=== PATIENT | female | born 1970 | race Caucasian/White ===

== ENCOUNTER 2016-11-13 14:51 | Inpatient (IN) | payer OTHER ==
[~2016-11-13] VITALS: Ht 170.2 cm; Wt 68.1 kg
[~2016-11-13 14:51] MED LIST: ALPRAZOLAM0.5 MG PO; AMOXICILLIN875 MG PO; AVELOX400 MG PO; BUPROPION HCL100 MG PO; CARAFATE100 MG/ML PO; CLEOCIN300 MG PO; Colace PO; DELTASONE20 M1 PO; DILAUDID2 MG PO; EXTRA STRENGTH500 M1 PO; FLORASTOR250 MG PO; FUROSEMIDE40 MG PO; GABAPENTIN400 MG PO; GILENYA PO; GILENYA0.5 MG PO; HABITROL,NICODE21 MG TD; HYDROCHLOROTH12.5 M3 PO; Habitrol,Nicoderm CQ TD; IMITREX100 MG PO; KEFLEX500 MG PO; MAXALT10 MG PO; MODAFINIL200 MG; MODAFINIL200 MG PO; NEURONTIN100 MG PO; NEURONTIN400 MG PO; NICOTINE PATCH1 EAC1 TD; NICOTINE PATCH1 EAC2 TD; OXYBUTYNIN CHLO10 MG PO; OXYCODONE HCL30 MG PO; OxyCODONE PO; PANTOPRAZOLE SO40 MG PO; PAXIL10 MG PO; PERCOCET 10/1 TABLET PO; PERCOCET 5/31 TABLET PO; PREDNISONE10 MG PO; PREDNISONE50 MG PO; PROTONIX40 MG PO; PROVIGIL200 MG PO; REBIF44 MCG/0.5 IM; Roxicet,Percocet 5/3 PO; SOLU-MEDRO1000 MG/1 IV; SUMATRIPTAN SU100 MG PO; TYSABRI300 MG/15 IV; VICODIN,LORT1 TABLET PO; VITAMIN D2000 UNI1 PO; XANAX0.5 MG PO; ZOFRAN4 MG PO; ZOLPIDEM TARTRAT5 MG PO; ZYVOX600 MG PO; [UNRECOGNIZED DRUG - OTHER] PO; [UNRECOGNIZED DRUG - OTHER] PO
[2016-11-13 17:20] LABS: MCH 24.5 PG (29.0-34.0); MCHC 31.8 G/DL (30.0-36.0); MCV 77.1 FL (83-99); MEAN PLAT.VOLUME 9.8 uM^3 (9.5-12.4); PLATELET COUNT 248 K/uL (156-360); RBC DIS.WIDTH-SD 56.2 % (39-53); RED BLOOD COUNT 4.41 M/uL (3.80-5.20); WHITE BLOOD COUNT 6.8 K/uL (4.1-10.2)
[2016-11-13 17:30] LABS: CHLORIDE 109 mEq/L (99-109); POTASSIUM 4.4 mEq/L (3.7-5.4); SODIUM 141 mEq/L (136-147)
[2016-11-13 17:33] LABS: GLUCOSE 98 mg/dL (70-99)
[2016-11-13 17:34] LABS: ANION GAP 6 MEQ/L (2-14)
[2016-11-13 17:35] LABS: TOTAL BILIRUBIN 0.2 mg/dL (0.0-1.0)
[2016-11-13 17:36] LABS: ALKALINE PHOSPHATASE 167 IU/L (3-129); GFR ESTIMATE (CALCULATED) > 59 mL/min/
[2016-11-13 17:37] LABS: UREA NITROGEN (BUN) 5 mg/dL (9-23)
[2016-11-14] VITALS (7 sets, daily range): BP systolic 96–115; BP diastolic 54–67
[2016-11-14 07:22] LABS: HEMATOCRIT 33.5 % (36.0-46.0); MCH 24.7 PG (29.0-34.0); MCHC 31.9 G/DL (30.0-36.0); MCV 77.4 FL (83-99); MEAN PLAT.VOLUME 9.8 uM^3 (9.5-12.4); PLATELET COUNT 211 K/uL (156-360); RBC DIS.WIDTH-CV 20.2 % (11.8-14.6); RBC DIS.WIDTH-SD 57.1 % (39-53); RED BLOOD COUNT 4.33 M/uL (3.80-5.20)
[2016-11-14 07:23] LABS: WHITE BLOOD COUNT 3.8 K/uL (4.1-10.2)
[2016-11-14 07:39] LABS: ALKALINE PHOSPHATASE 167 IU/L (3-129); ANION GAP 8 MEQ/L (2-14); CHLORIDE 106 MEQ/L (99-109); GFR ESTIMATE (CALCULATED) > 59 mL/min/; GLUCOSE 202 mg/dL (70-99); POTASSIUM 3.8 MEQ/L (3.7-5.4); SAMPLE HEMOLYSIS CHECK 0; SAMPLE ICTERIC CHECK 0; SAMPLE LIPEMIA CHECK 0; SODIUM 137 MEQ/L (136-147); TOTAL BILIRUBIN 0.3 MG/DL (0.0-1.0); UREA NITROGEN (BUN) 5 mg/dL (9-23)
[2016-11-15 04:15] VITALS: BP 99/60
[2016-11-15 07:37] VITALS: BP 99/55
[2016-11-15 12:33] VITALS: BP 114/54
[2016-11-15 15:46] VITALS: BP 117/69
[2016-11-15 20:18] VITALS: BP 117/74
[2016-11-16 00:10] VITALS: BP 107/55
[2016-11-16 04:17] VITALS: BP 110/62
[2016-11-16 07:48] VITALS: BP 103/58
[2016-11-16 11:48] VITALS: BP 98/56
[2016-11-16 15:44] VITALS: BP 115/70
== END 2016-11-16 17:05 | disposition home or self-care (01) | DRG 60 ==
LOC: RME 14:51 → EME 14:51 → EDOF 11-14 00:24 → 5WEST 11-14 01:18
PROVIDERS: Internal Medicine; Nurse Practitioner Family
DX: G35 Multiple sclerosis (principal); F32.9 Major depressive disorder, single episode, unspecified; G89.29 Other chronic pain; I89.0 Lymphedema, not elsewhere classified; K21.9 Gastro-esophageal reflux disease without esophagitis; Z87.11 Personal history of peptic ulcer disease; Z98.84 Bariatric surgery status; F17.210 Nicotine dependence, cigarettes, uncomplicated; M79.89 Other specified soft tissue disorders; M06.9 Rheumatoid arthritis, unspecified; G43.909 Migraine, unspecified, not intractable, without status migrainosus; R63.4 Abnormal weight loss; Z68.23 Body mass index [BMI] 23.0-23.9, adult
CPT/HCPCS: 70450; 74177; 80053; 85027; 99281; 99285; J1170; J1644; J2270; J2405; J2765; J2930; J7030

== ENCOUNTER 2016-12-01 18:37 | Emergency (ER) | payer OTHER ==
[~2016-12-01] VITALS: Ht 170.2 cm; Wt 71.4 kg
[2016-12-01 19:13] LABS: EOSINOPHIL (%) 5.9 % (0-5); EOSINOPHIL COUNT 0.5 K/uL (0-0.3); HEMATOCRIT 32.9 % (36.0-46.0); IMMATURE GRANULOCYTE (%) 0.7 % (0.0-0.7); IMMATURE GRANULOCYTE COUNT 0.6 K/uL; LYMPHOCYTE COUNT 3.5 K/uL (1.0-2.8); MCH 25.7 PG (29.0-34.0); MCHC 32.8 G/DL (30.0-36.0); MCV 78.1 FL (83-99); MONOCYTE (%) 8.4 % (3-12); MONOCYTE COUNT 0.7 K/uL (0-0.8); NEUTROPHIL (%) 43.4 % (45-76); NEUTROPHIL COUNT 3.7 K/uL (1.8-6.4); RBC DIS.WIDTH-CV 20.8 % (11.8-14.6); RED BLOOD COUNT 4.21 M/uL (3.80-5.20)
[2016-12-01 19:18] LABS: CHLORIDE 102 mEq/L (99-109); POTASSIUM 3.8 mEq/L (3.7-5.4); SODIUM 133 mEq/L (136-147)
[2016-12-01 19:19] LABS: GLUCOSE 95 mg/dL (70-99)
[2016-12-01 19:21] LABS: ANION GAP 8 MEQ/L (2-14)
[2016-12-01 19:23] LABS: GFR ESTIMATE (CALCULATED) > 59 mL/min/
[2016-12-01 19:24] LABS: UREA NITROGEN (BUN) 5 mg/dL (9-23)
[2016-12-01 19:41] LABS: WHITE BLOOD COUNT 8.5 K/uL (4.1-10.2)
[2016-12-01 20:04] LABS: ADD MIUA? NO; BILIRUBIN NEGATIVE; BLOOD NEGATIVE; COLOR YELLOW ((YELLOW)); GLUCOSE (STRIP) NEGATIVE; KETONES NEGATIVE; LEUKOCYTES NEGATIVE; NITRITE NEGATIVE; PROTEIN (STRIP) NEGATIVE; SPECIFIC GRAVITY 1.011 (1.000-1.030); UCUL ADDED? NO; UROBILINOGEN 0.2 MG/DL (0.2-1.0)
[2016-12-01 20:04] LABS: MEAN PLAT.VOLUME 9.5 uM^3 (9.5-12.4); PLAT.SUFFICIENCY DECREASED
[2016-12-01 20:15] LABS: PLATELET COUNT 144 K/uL (156-360)
[2016-12-01] MEDS ORDERED: CLEOCIN300 MG PO (21:18)
[2016-12-01 21:47] VITALS: BP 125/79
== END 2016-12-01 21:59 | disposition home or self-care (01) ==
LOC: RME 18:37 → EME 18:37 → RME 21:59
DX: L03.115 Cellulitis of right lower limb (principal); G89.29 Other chronic pain; Z79.891 Long term (current) use of opiate analgesic; F17.200 Nicotine dependence, unspecified, uncomplicated
CPT/HCPCS: 80048; 81003; 83605; 85025; 87040; 99281; 99285; J1170; J2270; J7030

== ENCOUNTER 2017-01-28 16:42 | Emergency (ER) | payer OTHER ==
[~2017-01-28] VITALS: Ht 170.2 cm; Wt 76.1 kg
[~2017-01-28 16:42] MED LIST changes: +BACLOFEN10 MG PO
[2017-01-28] MEDS ORDERED: BUTALB-APAP-CA1 EACH PO (18:31)
[2017-01-28] MEDS ORDERED: FUROSEMIDE40 MG PO (18:31)
[2017-01-28 19:27] LABS: ADD MIUA? NO; BILIRUBIN NEGATIVE; BLOOD NEGATIVE; COLOR YELLOW ((YELLOW)); GLUCOSE (STRIP) NEGATIVE; KETONES NEGATIVE; LEUKOCYTES NEGATIVE; NITRITE NEGATIVE; PROTEIN (STRIP) NEGATIVE; SPECIFIC GRAVITY 1.006 (1.000-1.030); UCUL ADDED? NO; UROBILINOGEN 0.2 MG/DL (0.2-1.0)
[2017-01-28 19:34] LABS: HEMATOCRIT 34.7 % (36.0-46.0); MCH 27.3 PG (29.0-34.0); MCHC 31.4 G/DL (30.0-36.0); MCV 86.8 FL (83-99); MEAN PLAT.VOLUME 9.4 uM^3 (9.5-12.4); NRBC (%) 1.2 /100 WBC (0-0); PLATELET COUNT 204 K/uL (156-360); RBC DIS.WIDTH-CV 20.4 % (11.8-14.6); RBC DIS.WIDTH-SD 64.4 % (39-53); WHITE BLOOD COUNT 8.1 K/uL (4.1-10.2)
[2017-01-28 19:42] LABS: CHLORIDE 108 mEq/L (99-109); POTASSIUM 4.1 mEq/L (3.7-5.4); SODIUM 140 mEq/L (136-147)
[2017-01-28 19:44] LABS: GLUCOSE 93 mg/dL (70-99)
[2017-01-28 19:45] LABS: ANION GAP 7 MEQ/L (2-14)
[2017-01-28 19:48] LABS: GFR ESTIMATE (CALCULATED) > 59 mL/min/
[2017-01-28 19:49] LABS: UREA NITROGEN (BUN) 12 mg/dL (9-23)
[2017-01-28] MEDS ORDERED: KEFLEX500 MG PO (20:27)
[2017-01-28 20:48] VITALS: BP 115/75
== END 2017-01-28 20:50 | disposition home or self-care (01) ==
LOC: EME 16:42 → EXP 16:42
PROVIDERS: Physician Assistant
DX: M79.604 Pain in right leg (principal); M79.605 Pain in left leg; G89.29 Other chronic pain; M79.89 Other specified soft tissue disorders; M79.7 Fibromyalgia; G35 Multiple sclerosis; K21.9 Gastro-esophageal reflux disease without esophagitis; Z98.84 Bariatric surgery status; F17.200 Nicotine dependence, unspecified, uncomplicated
CPT/HCPCS: 80048; 81003; 85027; 85379; 99281; 99284; J1940; J2270

== ENCOUNTER 2017-03-30 14:06 | Inpatient (IN) | payer OTHER ==
[~2017-03-30] VITALS: Ht 170.2 cm; Wt 68.4 kg
[~2017-03-30 14:06] MED LIST changes: +BUTALB-APAP-CA1 EACH PO
[2017-03-30 14:49] LABS: HEMATOCRIT 32.9 % (36.0-46.0); MCH 29.9 PG (29.0-34.0); MCHC 32.8 G/DL (30.0-36.0); MCV 91.1 FL (83-99); MEAN PLAT.VOLUME 9.9 uM^3 (9.5-12.4); NRBC (%) 0.5 /100 WBC (0-0); PLATELET COUNT 213 K/uL (156-360); RBC DIS.WIDTH-CV 14.4 % (11.8-14.6); RBC DIS.WIDTH-SD 48.3 % (39-53); RED BLOOD COUNT 3.61 M/uL (3.80-5.20); WHITE BLOOD COUNT 9.5 K/uL (4.1-10.2)
[2017-03-30 14:57] LABS: CHLORIDE 92 mEq/L (99-109); POTASSIUM 2.6 mEq/L (3.7-5.4); SODIUM 132 mEq/L (136-147)
[2017-03-30 14:59] LABS: GLUCOSE 112 mg/dL (70-99)
[2017-03-30 15:00] LABS: ANION GAP 10 MEQ/L (2-14)
[2017-03-30 15:01] LABS: TOTAL BILIRUBIN 0.5 mg/dL (0.0-1.0)
[2017-03-30 15:02] LABS: ALKALINE PHOSPHATASE 190 IU/L (3-129)
[2017-03-30 15:03] LABS: GFR ESTIMATE (CALCULATED) > 59 mL/min/
[2017-03-30 15:04] LABS: UREA NITROGEN (BUN) 6 mg/dL (9-23)
[2017-03-30 18:32] LABS: ADD MIUA? NO; BILIRUBIN NEGATIVE; BLOOD NEGATIVE; COLOR STRAW ((YELLOW)); GLUCOSE (STRIP) NEGATIVE; KETONES NEGATIVE; LEUKOCYTES NEGATIVE; NITRITE NEGATIVE; PROTEIN (STRIP) NEGATIVE; SPECIFIC GRAVITY 1.005 (1.000-1.030); UROBILINOGEN 0.2 MG/DL (0.2-1.0)
[2017-03-30 18:42] LABS: ADD MEDTOX COMMENT Y; AMPHETAMINE NEGATIVE (500 ng/mL); BARBITURATES NEGATIVE (200 ng/mL); BENZODIAZEPINES PRESUMPTIVE POSITIVE (150 ng/mL); COCAINE NEGATIVE (150 ng/mL); INTERNAL CONTROLS VALID? YES; METHADONE PRESUMPTIVE POSITIVE (200 ng/mL); METHAMPHETAMINE NEGATIVE (500 ng/mL); OPIATES (MORPHINE) PRESUMPTIVE POSITIVE (100 ng/mL); OXYCODONE PRESUMPTIVE POSITIVE (100 ng/mL); PHENCYCLIDINE NEGATIVE (25 ng/mL); PROPOXYPHENE NEGATIVE (300 ng/mL); THC CANNABINOIDS NEGATIVE (50 ng/mL); TRICYCLIC ANTIDEPRESSANTS NEGATIVE (300 ng/mL)
[2017-03-30 19:19] LABS: BENZODIAZEPINES QUANT VALUE 0 NG/ML; BENZODIAZEPINES, URINE SCREEN Negative (200 ng/mL)
[2017-03-30 20:46] LABS: CHLORIDE 100 mEq/L (99-109); POTASSIUM 2.6 mEq/L (3.7-5.4); SODIUM 138 mEq/L (136-147)
[2017-03-30 20:47] LABS: GLUCOSE 105 mg/dL (70-99)
[2017-03-30 20:49] LABS: ANION GAP 8 MEQ/L (2-14)
[2017-03-30 20:51] LABS: GFR ESTIMATE (CALCULATED) > 59 mL/min/
[2017-03-30 20:52] LABS: UREA NITROGEN (BUN) 5 mg/dL (9-23)
[2017-03-30 21:03] VITALS: BP 103/52
[2017-03-31] VITALS (8 sets, daily range): BP systolic 89–144; BP diastolic 43–64
[2017-03-31 05:02] LABS: EOSINOPHIL (%) 1.6 % (0-5); EOSINOPHIL COUNT 0.1 K/uL (0-0.3); HEMATOCRIT 27.5 % (36.0-46.0); IMMATURE GRANULOCYTE (%) 1.6 % (0.0-0.7); IMMATURE GRANULOCYTE COUNT 0.1 K/uL; INSTRUMENT ABS NEUTROPHIL CT 4.7 K/uL; LYMPHOCYTE COUNT 1.8 K/uL (1.0-2.8); MCH 29.6 PG (29.0-34.0); MCV 92.6 FL (83-99); MEAN PLAT.VOLUME 9.7 uM^3 (9.5-12.4); MONOCYTE (%) 7.9 % (3-12); MONOCYTE COUNT 0.6 K/uL (0-0.8); NEUTROPHIL (%) 64.2 % (45-76); NEUTROPHIL COUNT 4.7 K/uL (1.8-6.4); NRBC (%) 0.5 /100 WBC (0-0); PLATELET COUNT 156 K/uL (156-360); RBC DIS.WIDTH-CV 14.6 % (11.8-14.6); RBC DIS.WIDTH-SD 49.9 % (39-53); RED BLOOD COUNT 2.97 M/uL (3.80-5.20); WHITE BLOOD COUNT 7.3 K/uL (4.1-10.2)
[2017-03-31 10:09] LABS: CHLORIDE 105 mEq/L (99-109); SODIUM 138 mEq/L (136-147)
[2017-03-31 10:10] LABS: MAGNESIUM 1.7 mg/dL (1.3-2.7); POTASSIUM 3.2 mEq/L (3.7-5.4)
[2017-03-31 10:13] LABS: ANION GAP 8 MEQ/L (2-14); GLUCOSE 185 mg/dL (70-99)
[2017-03-31 10:15] LABS: GFR ESTIMATE (CALCULATED) > 59 mL/min/
[2017-03-31 10:16] LABS: UREA NITROGEN (BUN) 4 mg/dL (9-23)
[2017-04-01 06:46] VITALS: BP 98/62
[2017-04-01 07:05] LABS: HEMATOCRIT 27.1 % (36.0-46.0); MCH 30.5 PG (29.0-34.0); MCHC 31.7 G/DL (30.0-36.0); MCV 96.1 FL (83-99); MEAN PLAT.VOLUME 10.4 uM^3 (9.5-12.4); NRBC (%) 0.9 /100 WBC (0-0); PLATELET COUNT 182 K/uL (156-360); RBC DIS.WIDTH-CV 14.8 % (11.8-14.6); RBC DIS.WIDTH-SD 51.9 % (39-53); RED BLOOD COUNT 2.82 M/uL (3.80-5.20)
[2017-04-01 07:33] LABS: ANION GAP 6 MEQ/L (2-14); CHLORIDE 107 MEQ/L (99-109); GFR ESTIMATE (CALCULATED) > 59 mL/min/; SAMPLE HEMOLYSIS CHECK 0; SAMPLE ICTERIC CHECK 0; SAMPLE LIPEMIA CHECK 0; SODIUM 139 MEQ/L (136-147); UREA NITROGEN (BUN) 5 mg/dL (9-23)
[2017-04-01 07:38] LABS: GLUCOSE 85 mg/dL (70-99); POTASSIUM 4.4 MEQ/L (3.7-5.4)
[2017-04-01 08:11] LABS: INTERNAL CONTROL VALID? YES
[2017-04-01 15:29] VITALS: BP 97/58
[2017-04-01 23:26] VITALS: BP 102/52
[2017-04-02 07:41] VITALS: BP 94/59
[2017-04-02 12:19] VITALS: BP 99/62
[2017-04-02 16:19] VITALS: BP 102/62
[2017-04-02 23:47] VITALS: BP 116/76
[2017-04-03 08:13] VITALS: BP 92/62
[2017-04-03] MEDS ORDERED: LEVAQUIN500 MG PO (13:56)
== END 2017-04-03 15:16 | disposition home or self-care (01) | DRG 194 ==
LOC: EME 14:06 → 2EAST 19:16 → EDOF 19:16 → 2EAST 20:56
PROVIDERS: Emergency Medicine; Internal Medicine; Internal Medicine Nephrology
DX: J18.9 Pneumonia, unspecified organism (principal); E87.1 Hypo-osmolality and hyponatremia; G35 Multiple sclerosis; G89.4 Chronic pain syndrome; E87.6 Hypokalemia; I89.0 Lymphedema, not elsewhere classified; D64.9 Anemia, unspecified; F32.9 Major depressive disorder, single episode, unspecified; K59.00 Constipation, unspecified; G43.909 Migraine, unspecified, not intractable, without status migrainosus; K21.9 Gastro-esophageal reflux disease without esophagitis; K27.9 Peptic ulcer, site unspecified, unspecified as acute or chronic, without hemorrhage or perforation; F17.210 Nicotine dependence, cigarettes, uncomplicated; Z90.49 Acquired absence of other specified parts of digestive tract; Z98.84 Bariatric surgery status; N32.89 Other specified disorders of bladder; F41.9 Anxiety disorder, unspecified
CPT/HCPCS: 71010; 71020; 72156; 72157; 74177; 80048; 80048 91; 80053; 81003; 83735; 84999; 85025; 85027; 87040; 87070; 87205; 87449; 93005; 93970; 99281; 99285; J0456; J0696; J1200; J1630; J1940; J1956; J3010; J3480; J7030; J7050

== ENCOUNTER 2017-04-28 22:40 | Inpatient (IN) | payer OTHER ==
[~2017-04-28] VITALS: Ht 170.2 cm; Wt 72.7 kg
[~2017-04-28 22:40] MED LIST changes: +LEVAQUIN500 MG PO
[2017-04-29 00:05] LABS: HEMATOCRIT 30.6 % (36.0-46.0); MCH 27.6 PG (29.0-34.0); MEAN PLAT.VOLUME 9.6 uM^3 (9.5-12.4); PLATELET COUNT 190 K/uL (156-360); RBC DIS.WIDTH-CV 15.3 % (11.8-14.6); RBC DIS.WIDTH-SD 48.6 % (39-53); WHITE BLOOD COUNT 5.2 K/uL (4.1-10.2)
[2017-04-29 00:07] LABS: CHLORIDE 101 mEq/L (99-109); POTASSIUM 3.6 mEq/L (3.7-5.4); SODIUM 131 mEq/L (136-147)
[2017-04-29 00:08] LABS: GLUCOSE 90 mg/dL (70-99)
[2017-04-29 00:10] LABS: ANION GAP 5 MEQ/L (2-14)
[2017-04-29 00:12] LABS: GFR ESTIMATE (CALCULATED) > 59 mL/min/
[2017-04-29 00:13] LABS: UREA NITROGEN (BUN) 4 mg/dL (9-23)
[2017-04-29 00:14] LABS: RED BLOOD COUNT 3.55 M/uL (3.80-5.20)
[2017-04-29 00:15] LABS: MCV 86.2 FL (83-99)
[2017-04-29 00:17] LABS: TROP-I INTERPRETATION NEGATIVE; TROPONIN-I < 0.01 ng/mL (0.0-0.30)
[2017-04-29 04:54] LABS: INTER. NORMALIZED RATIO 1.1; PROTHROMBIN TIME 10.8 (9.2-11.2)
[2017-04-29 16:23] VITALS: BP 99/54
[2017-04-29 20:15] VITALS: BP 90/51
[2017-04-30 00:13] VITALS: BP 94/52
[2017-04-30 03:08] VITALS: BP 92/52
[2017-04-30 07:15] VITALS: BP 116/67
[2017-04-30 09:28] LABS: HEMATOCRIT 30.1 % (36.0-46.0); MCH 27.1 PG (29.0-34.0); MCHC 31.6 G/DL (30.0-36.0); MEAN PLAT.VOLUME 9.8 uM^3 (9.5-12.4); PLATELET COUNT 171 K/uL (156-360); RBC DIS.WIDTH-CV 15.2 % (11.8-14.6); RBC DIS.WIDTH-SD 47.9 % (39-53); WHITE BLOOD COUNT 3.5 K/uL (4.1-10.2)
[2017-04-30 10:19] LABS: ANION GAP 8 MEQ/L (2-14); CHLORIDE 104 MEQ/L (99-109); GFR ESTIMATE (CALCULATED) > 59 mL/min/; GLUCOSE 131 mg/dL (70-99); POTASSIUM 3.8 MEQ/L (3.7-5.4); SAMPLE HEMOLYSIS CHECK 0; SAMPLE ICTERIC CHECK 0; SAMPLE LIPEMIA CHECK 0; UREA NITROGEN (BUN) 9 mg/dL (9-23)
[2017-04-30 10:20] LABS: SODIUM 141 MEQ/L (136-147)
[2017-04-30 15:00] VITALS: BP 94/59
[2017-04-30 19:40] LABS: ADD MIUA? NO; BILIRUBIN NEGATIVE; BLOOD NEGATIVE; COLOR YELLOW ((YELLOW)); GLUCOSE (STRIP) NEGATIVE; KETONES NEGATIVE; LEUKOCYTES NEGATIVE; NITRITE NEGATIVE; PROTEIN (STRIP) NEGATIVE; SPECIFIC GRAVITY 1.009 (1.000-1.030); UCUL ADDED? NO; UROBILINOGEN 0.2 MG/DL (0.2-1.0)
[2017-04-30 23:15] VITALS: BP 99/65
[2017-05-01 06:28] LABS: HEMATOCRIT 29.1 % (36.0-46.0); MCH 28.2 PG (29.0-34.0); MCV 85.3 FL (83-99); PLATELET COUNT 146 K/uL (156-360); RBC DIS.WIDTH-CV 15.3 % (11.8-14.6); RBC DIS.WIDTH-SD 47.6 % (39-53); RED BLOOD COUNT 3.41 M/uL (3.80-5.20); WHITE BLOOD COUNT 3.4 K/uL (4.1-10.2)
[2017-05-01 06:56] LABS: ANION GAP 6 MEQ/L (2-14); CHLORIDE 100 MEQ/L (99-109); GFR ESTIMATE (CALCULATED) > 59 mL/min/; POTASSIUM 3.4 MEQ/L (3.7-5.4); SAMPLE HEMOLYSIS CHECK 0; SAMPLE ICTERIC CHECK 0; SAMPLE LIPEMIA CHECK 0; SODIUM 137 MEQ/L (136-147); UREA NITROGEN (BUN) 11 mg/dL (9-23)
[2017-05-01 07:00] VITALS: BP 89/54
[2017-05-01 07:01] LABS: GLUCOSE 81 mg/dL (70-99)
[2017-05-01 15:30] VITALS: BP 87/55
[2017-05-01 23:11] VITALS: BP 102/63
[2017-05-02 03:46] VITALS: BP 140/72
[2017-05-02 07:00] VITALS: BP 90/55
[2017-05-02] MEDS ORDERED: XARELTO15 MG PO (10:49)
[2017-05-02] MEDS ORDERED: ROPINIROLE HC0.25 MG PO (10:49)
[2017-05-02] MEDS ORDERED: LIDOCAINE700 MG TD (10:49)
[2017-05-02] MEDS ORDERED: XARELTO20 MG PO (10:49)
[2017-05-02] MEDS ORDERED: GABAPENTIN600 MG PO (10:49)
[2017-05-02 16:53] VITALS: BP 100/61
[2017-05-02 23:34] VITALS: BP 104/64
[2017-05-03 07:25] VITALS: BP 88/51
[2017-05-03] MEDS ORDERED: XARELTO15 MG PO (10:42)
== END 2017-05-03 13:50 | disposition home or self-care (01) | DRG 300 ==
LOC: EME 22:40 → EDOF 04-29 05:15 → 2EAST 04-29 05:15
PROVIDERS: Emergency Medicine; Hospitalist
DX: I82.442 Acute embolism and thrombosis of left tibial vein (principal); G35 Multiple sclerosis; S22.32XA Fracture of one rib, left side, initial encounter for closed fracture; G25.3 Myoclonus; W19.XXXA Unspecified fall, initial encounter; R60.0 Localized edema; R11.0 Nausea; K21.9 Gastro-esophageal reflux disease without esophagitis; M79.7 Fibromyalgia; F41.9 Anxiety disorder, unspecified; F32.9 Major depressive disorder, single episode, unspecified; G89.4 Chronic pain syndrome; I89.0 Lymphedema, not elsewhere classified; F17.200 Nicotine dependence, unspecified, uncomplicated; D64.9 Anemia, unspecified; Z91.81 History of falling; Y93.9 Activity, unspecified; Y92.009 Unspecified place in unspecified non-institutional (private) residence as the place of occurrence of the external cause; Z98.84 Bariatric surgery status; Z87.11 Personal history of peptic ulcer disease; Z79.01 Long term (current) use of anticoagulants
CPT/HCPCS: 71020; 71250; 80048; 80053; 81003; 83880; 84484; 85027; 85610; 85730; 93005; 93970; 99281; 99284; J2270; J2405; J2930; J7050

== ENCOUNTER 2017-07-17 22:44 | Inpatient (IN) | payer OTHER ==
[~2017-07-17] VITALS: Ht 170.2 cm; Wt 73.8 kg
[~2017-07-17 22:44] MED LIST changes: +GABAPENTIN600 MG PO; +LIDOCAINE700 MG TD; +ROPINIROLE HC0.25 MG PO; +XARELTO15 MG PO; +XARELTO20 MG PO
[2017-07-18 01:26] LABS: HEMATOCRIT 32.2 % (36.0-46.0); MCH 25.2 PG (29.0-34.0); MCHC 32.3 G/DL (30.0-36.0); MEAN PLAT.VOLUME 9.4 uM^3 (9.5-12.4); PLATELET COUNT 219 K/uL (156-360); RBC DIS.WIDTH-CV 23.3 % (11.8-14.6); RBC DIS.WIDTH-SD 64.1 % (39-53); RED BLOOD COUNT 4.13 M/uL (3.80-5.20); WHITE BLOOD COUNT 6.2 K/uL (4.1-10.2)
[2017-07-18 01:38] LABS: CHLORIDE 99 mEq/L (99-109); SODIUM 138 mEq/L (136-147)
[2017-07-18 01:40] LABS: GLUCOSE 106 mg/dL (70-99)
[2017-07-18 01:41] LABS: ANION GAP 9 MEQ/L (2-14)
[2017-07-18 01:42] LABS: TOTAL BILIRUBIN 0.4 mg/dL (0.0-1.0)
[2017-07-18 01:44] LABS: ALKALINE PHOSPHATASE 213 IU/L (3-129); GFR ESTIMATE (CALCULATED) > 59 mL/min/; POTASSIUM 2.4 mEq/L (3.7-5.4)
[2017-07-18 01:45] LABS: UREA NITROGEN (BUN) 10 mg/dL (9-23)
[2017-07-18 03:11] LABS: MAGNESIUM 1.5 mg/dL (1.3-2.7)
[2017-07-18] MEDS ORDERED: POTASSIUM CHLO20 ME2 PO (03:24)
[2017-07-18 08:05] VITALS: BP 90/50
[2017-07-18 15:36] VITALS: BP 84/49
[2017-07-18 23:13] VITALS: BP 99/53
[2017-07-19 07:22] VITALS: BP 89/53
[2017-07-19 07:58] LABS: ALKALINE PHOSPHATASE 144 IU/L (3-129); DIRECT BILIRUBIN 0.1 mg/dL (0.0-0.3); MAGNESIUM 1.9 mg/dl (1.3-2.7); TOTAL BILIRUBIN 0.3 MG/DL (0.0-1.0)
[2017-07-19 13:07] LABS: ANION GAP 5 MEQ/L (2-14); CHLORIDE 98 MEQ/L (99-109); GFR ESTIMATE (CALCULATED) > 59 mL/min/; GLUCOSE 93 mg/dL (70-99); SAMPLE HEMOLYSIS CHECK 0; SAMPLE ICTERIC CHECK 0; SAMPLE LIPEMIA CHECK 0; SODIUM 136 MEQ/L (136-147); UREA NITROGEN (BUN) 8 mg/dL (9-23)
[2017-07-19 13:26] LABS: POTASSIUM 3.7 MEQ/L (3.7-5.4)
[2017-07-19] MEDS ORDERED: ROPINIROLE HC0.25 MG PO (14:04)
[2017-07-19] MEDS ORDERED: K-DUR20 MEQ PO (14:05)
[2017-07-19 17:26] VITALS: BP 92/45
[2017-07-20 00:27] VITALS: BP 105/61
[2017-07-20 06:40] LABS: ANION GAP 4 MEQ/L (2-14); CHLORIDE 103 MEQ/L (99-109); GFR ESTIMATE (CALCULATED) > 59 mL/min/; GLUCOSE 84 mg/dL (70-99); POTASSIUM 3.9 MEQ/L (3.7-5.4); SAMPLE HEMOLYSIS CHECK 0; SAMPLE ICTERIC CHECK 0; SAMPLE LIPEMIA CHECK 0; SODIUM 140 MEQ/L (136-147); UREA NITROGEN (BUN) 9 mg/dL (9-23)
[2017-07-20 06:42] LABS: MAGNESIUM 2.3 mg/dl (1.3-2.7)
[2017-07-20 07:11] VITALS: BP 88/54
[2017-07-20 11:51] VITALS: BP 98/52
[2017-07-20 14:42] LABS: ADD MIUA? NO; BILIRUBIN NEGATIVE; BLOOD NEGATIVE; COLOR YELLOW ((YELLOW)); GLUCOSE (STRIP) NEGATIVE; KETONES NEGATIVE; LEUKOCYTES NEGATIVE; NITRITE NEGATIVE; PROTEIN (STRIP) NEGATIVE; UROBILINOGEN 0.2 MG/DL (0.2-1.0)
[2017-07-20 16:03] VITALS: BP 91/51
[2017-07-20 23:15] VITALS: BP 97/49
[2017-07-21 07:06] VITALS: BP 87/53
[2017-07-21 08:47] VITALS: BP 88/52
[2017-07-21] MEDS ORDERED: KEFLEX500 MG PO (10:59)
[2017-07-21] MEDS ORDERED: GABAPENTIN300 MG PO (11:02)
[2017-07-21] MEDS ORDERED: K-DUR20 MEQ PO (11:02)
[2017-07-21] MEDS ORDERED: DOCUSATE SODIU100 MG PO (11:02)
[2017-07-21] MEDS ORDERED: FUROSEMIDE40 MG PO (11:02)
[2017-07-21 16:33] VITALS: BP 85/52
[2017-07-21 18:18] VITALS: BP 101/57
[2017-07-22 00:38] VITALS: BP 105/60
[2017-07-22 16:07] VITALS: BP 99/58
[2017-07-22 23:34] VITALS: BP 90/51
[2017-07-23 06:35] VITALS: BP 107/65
[2017-07-23 09:55] VITALS: BP 89/52
== END 2017-07-23 12:20 | disposition home or self-care (01) | DRG 603 ==
LOC: EXP 22:44 → EME 22:44 → EDOF 07-18 02:28 → 5EAST 07-18 02:28 → ENRESERV 07-18 02:29 → 5EAST 07-18 04:16
PROVIDERS: Internal Medicine; Physician Assistant; Physician Assistant Medical
DX: L03.115 Cellulitis of right lower limb (principal); L03.116 Cellulitis of left lower limb; E44.0 Moderate protein-calorie malnutrition; E87.6 Hypokalemia; E83.42 Hypomagnesemia; E88.09 Other disorders of plasma-protein metabolism, not elsewhere classified; D63.8 Anemia in other chronic diseases classified elsewhere; G35 Multiple sclerosis; Z86.718 Personal history of other venous thrombosis and embolism; M79.7 Fibromyalgia; G89.29 Other chronic pain; F17.200 Nicotine dependence, unspecified, uncomplicated; K21.9 Gastro-esophageal reflux disease without esophagitis; R13.10 Dysphagia, unspecified; Z98.84 Bariatric surgery status; Z68.25 Body mass index [BMI] 25.0-25.9, adult; I89.0 Lymphedema, not elsewhere classified
CPT/HCPCS: 80048; 80048 91; 80053; 80076; 81003; 83735; 83880; 85027; 93970; 99281; 99285; J0690; J1650; J2270; J3010; J3370; J3480; J7030

== ENCOUNTER 2017-12-12 19:16 | Emergency (ER) | payer OTHER ==
[~2017-12-12] VITALS: Ht 167.6 cm; Wt 76.3 kg
[~2017-12-12 19:16] MED LIST changes: +DOCUSATE SODIU100 MG PO; +GABAPENTIN300 MG PO; +K-DUR20 MEQ PO; +POTASSIUM CHLO20 ME2 PO
[2017-12-12 20:24] LABS: CHLORIDE 102 mEq/L (99-109); POTASSIUM 4.1 mEq/L (3.7-5.4); SODIUM 134 mEq/L (136-147)
[2017-12-12 20:26] LABS: GLUCOSE 97 mg/dL (70-99)
[2017-12-12 20:30] LABS: CREATININE 0.6 mg/dL (0.6-1.3); GFR ESTIMATE (CALCULATED) > 59 mL/min/
[2017-12-12 20:31] LABS: UREA NITROGEN (BUN) 5 mg/dL (9-23)
[2017-12-12 20:41] LABS: BASOPHIL (%) 0.6 % (0-1); EOSINOPHIL (%) 1.7 % (0-5); EOSINOPHIL COUNT 0.1 K/uL (0-0.3); HEMATOCRIT 27.7 % (36.0-46.0); HEMOGLOBIN 8.4 G/DL (11.9-15.5); IMMATURE GRANULOCYTE (%) 0.6 % (0.0-0.7); LYMPHOCYTE (%) 35.6 % (15-42); LYMPHOCYTE COUNT 1.7 K/uL (1.0-2.8); MCH 21.8 PG (29.0-34.0); MCHC 30.3 G/DL (30.0-36.0); MCV 71.9 FL (83-99); MONOCYTE (%) 8.3 % (3-12); MONOCYTE COUNT 0.4 K/uL (0-0.8); NEUTROPHIL (%) 53.2 % (45-76); NEUTROPHIL COUNT 2.5 K/uL (1.8-6.4); PLATELET COUNT 250 K/uL (156-360); RBC DIS.WIDTH-CV 18.7 % (11.8-14.6); RBC DIS.WIDTH-SD 48.7 % (39-53); RED BLOOD COUNT 3.85 M/uL (3.80-5.20); WHITE BLOOD COUNT 4.7 K/uL (4.1-10.2)
[2017-12-13] MEDS ORDERED: BACTRIM,SEPT1 TABLET PO (01:05)
[2017-12-13] MEDS ORDERED: KEFLEX500 MG PO (01:05)
[2017-12-13 01:32] VITALS: BP 113/59
== END 2017-12-13 01:37 | disposition home or self-care (01) ==
LOC: EME 19:16
DX: R60.0 Localized edema (principal); L03.115 Cellulitis of right lower limb; L03.116 Cellulitis of left lower limb; G35 Multiple sclerosis; M79.7 Fibromyalgia; K21.9 Gastro-esophageal reflux disease without esophagitis; F32.9 Major depressive disorder, single episode, unspecified; F41.9 Anxiety disorder, unspecified; F17.200 Nicotine dependence, unspecified, uncomplicated; Z98.84 Bariatric surgery status; Z87.19 Personal history of other diseases of the digestive system; Z90.49 Acquired absence of other specified parts of digestive tract; Z88.6 Allergy status to analgesic agent; Z86.718 Personal history of other venous thrombosis and embolism
CPT/HCPCS: 80048; 83605; 85025; 93970; 99281; 99284

== ENCOUNTER 2018-03-09 16:15 | Emergency (ER) | payer OTHER ==
[~2018-03-09] VITALS: Ht 167.6 cm; Wt 76.8 kg
[~2018-03-09 16:15] MED LIST changes: +BACTRIM,SEPT1 TABLET PO
[2018-03-09 18:51] VITALS: BP 112/72
== END 2018-03-09 19:19 | disposition home or self-care (01) ==
LOC: EME 16:15
DX: S32.512A Fracture of superior rim of left pubis, initial encounter for closed fracture (principal); S32.592A Other specified fracture of left pubis, initial encounter for closed fracture; M81.0 Age-related osteoporosis without current pathological fracture; G35 Multiple sclerosis; Z86.718 Personal history of other venous thrombosis and embolism; Z88.4 Allergy status to anesthetic agent
CPT/HCPCS: 73502; 81003; 93971; 99281; 99284

== ENCOUNTER 2018-03-11 12:54 | Emergency (ER) | payer OTHER ==
[~2018-03-11] VITALS: Ht 167.6 cm; Wt 76.8 kg
[2018-03-11] MEDS ORDERED: MS CONTIN,ORAMO60 MG PO (14:52)
[2018-03-11 15:00] VITALS: BP 118/71
[2018-03-11] MEDS ORDERED: PREDNISONE10 M1 PO (15:08)
[2018-03-11] MEDS ORDERED: KEFLEX500 MG PO (15:51)
== END 2018-03-11 16:46 | disposition home or self-care (01) ==
LOC: EME 12:54
DX: G89.29 Other chronic pain (principal); S32.512D Fracture of superior rim of left pubis, subsequent encounter for fracture with routine healing; S32.592D Other specified fracture of left pubis, subsequent encounter for fracture with routine healing; G35 Multiple sclerosis; M81.0 Age-related osteoporosis without current pathological fracture; Z88.6 Allergy status to analgesic agent
CPT/HCPCS: 99281; 99282; J1100; J3010

== ENCOUNTER 2018-04-07 19:06 | Inpatient (IN) | payer OTHER ==
[~2018-04-07] VITALS: Ht 167.6 cm; Wt 74.0 kg
[~2018-04-07 19:06] MED LIST changes: +MS CONTIN,ORAMO60 MG PO; +PREDNISONE10 M1 PO
[2018-04-07 20:17] LABS: HEMATOCRIT 24.4 % (36.0-46.0); HEMOGLOBIN 7.3 G/DL (11.9-15.5); MCH 18.9 PG (29.0-34.0); MCHC 29.9 G/DL (30.0-36.0); MCV 63.2 FL (83-99); PLATELET COUNT 298 K/uL (156-360); RBC DIS.WIDTH-SD 43.4 % (39-53); RED BLOOD COUNT 3.86 M/uL (3.80-5.20); WHITE BLOOD COUNT 5.5 K/uL (4.1-10.2)
[2018-04-07 20:20] LABS: CHLORIDE 101 mEq/L (99-109); POTASSIUM 4.2 mEq/L (3.7-5.4); SODIUM 134 mEq/L (136-147)
[2018-04-07 20:22] LABS: GLUCOSE 108 mg/dL (70-99)
[2018-04-07 20:26] LABS: CREATININE 0.5 mg/dL (0.6-1.3); GFR ESTIMATE (CALCULATED) > 59 mL/min/
[2018-04-07 20:27] LABS: UREA NITROGEN (BUN) 2 mg/dL (9-23)
[2018-04-07 21:49] LABS: APPEARANCE CLEAR ((CLEAR)); BILIRUBIN NEGATIVE; BLOOD NEGATIVE; COLOR STRAW ((YELLOW)); GLUCOSE (STRIP) NEGATIVE; KETONES NEGATIVE; LEUKOCYTES NEGATIVE; NITRITE NEGATIVE; PROTEIN (STRIP) NEGATIVE; SPECIFIC GRAVITY 1.003 (1.000-1.030); UCUL ADDED? NO; UROBILINOGEN 0.2 MG/DL (0.2-1.0)
[2018-04-07 22:08] VITALS: BP 107/66
[2018-04-07 22:19] VITALS: BP 111/62
[2018-04-07] MEDS ORDERED: PEN-VEE K,VEET500 MG PO (22:53)
[2018-04-07] MEDS ORDERED: GABAPENTIN600 MG PO (22:55)
[2018-04-07 23:21] VITALS: BP 107/68
[2018-04-08] VITALS (10 sets, daily range): BP systolic 96–124; BP diastolic 58–75
[2018-04-08 08:03] LABS: HEMATOCRIT 28.7 % (36.0-46.0); HEMOGLOBIN 8.6 G/DL (11.9-15.5); MCV 66.7 FL (83-99); PLATELET COUNT 266 K/uL (156-360); RBC DIS.WIDTH-CV 23.4 % (11.8-14.6); RBC DIS.WIDTH-SD 54.2 % (39-53); WHITE BLOOD COUNT 4.5 K/uL (4.1-10.2)
[2018-04-08 08:21] LABS: CHLORIDE 105 MEQ/L (99-109); CREATININE 0.4 MG/DL (0.6-1.3); GFR ESTIMATE (CALCULATED) > 59 mL/min/; GLUCOSE 93 mg/dL (70-99); POTASSIUM 4.7 MEQ/L (3.7-5.4); SODIUM 137 MEQ/L (136-147); UREA NITROGEN (BUN) 4 mg/dL (9-23)
[2018-04-09 03:53] VITALS: BP 136/63
[2018-04-09 06:48] LABS: HEMATOCRIT 29.4 % (36.0-46.0); HEMOGLOBIN 8.6 G/DL (11.9-15.5); MCH 19.3 PG (29.0-34.0); MCHC 29.3 G/DL (30.0-36.0); MCV 66.1 FL (83-99); PLATELET COUNT 287 K/uL (156-360); RBC DIS.WIDTH-CV 23.6 % (11.8-14.6); RBC DIS.WIDTH-SD 54.1 % (39-53); RED BLOOD COUNT 4.45 M/uL (3.80-5.20); WHITE BLOOD COUNT 4.7 K/uL (4.1-10.2)
[2018-04-09 07:01] LABS: CHLORIDE 101 MEQ/L (99-109); CREATININE 0.5 MG/DL (0.6-1.3); GFR ESTIMATE (CALCULATED) > 59 mL/min/; GLUCOSE 80 mg/dL (70-99); IRON 22 MCG/DL (35-150); POTASSIUM 4.5 MEQ/L (3.7-5.4); SODIUM 134 MEQ/L (136-147); TRANSFERRIN (TIBC) 355.7 mg/dL (215-380); TRANSFERRIN SATUR. 6 % (20-55); UREA NITROGEN (BUN) 5 mg/dL (9-23)
[2018-04-09 07:27] VITALS: BP 114/68
[2018-04-09 07:47] LABS: FERRITIN 15 NG/ML (10-291)
[2018-04-09 07:53] LABS: FOLIC ACID (FOLATE) 11.5 NG/ML (5.0-22.0)
[2018-04-09 11:10] VITALS: BP 111/66
[2018-04-09 16:05] VITALS: BP 123/71
[2018-04-09 20:08] VITALS: BP 113/69
[2018-04-09 23:13] VITALS: BP 112/67
[2018-04-10 06:28] LABS: HEMATOCRIT 31.5 % (36.0-46.0); HEMOGLOBIN 9.4 G/DL (11.9-15.5); MCH 19.9 PG (29.0-34.0); MCHC 29.8 G/DL (30.0-36.0); MCV 66.7 FL (83-99); PLATELET COUNT 305 K/uL (156-360); RBC DIS.WIDTH-CV 24.2 % (11.8-14.6); RBC DIS.WIDTH-SD 55.3 % (39-53); RED BLOOD COUNT 4.72 M/uL (3.80-5.20); WHITE BLOOD COUNT 3.8 K/uL (4.1-10.2)
[2018-04-10 08:47] VITALS: BP 106/64
[2018-04-10 15:15] VITALS: BP 115/70
[2018-04-11 00:21] VITALS: BP 112/66
[2018-04-11 06:48] LABS: HEMATOCRIT 29.6 % (36.0-46.0); HEMOGLOBIN 8.4 G/DL (11.9-15.5); MCH 19.4 PG (29.0-34.0); MCHC 28.4 G/DL (30.0-36.0); MCV 68.4 FL (83-99); PLATELET COUNT 304 K/uL (156-360); RBC DIS.WIDTH-CV 23.9 % (11.8-14.6); RBC DIS.WIDTH-SD 56.7 % (39-53); RED BLOOD COUNT 4.33 M/uL (3.80-5.20)
[2018-04-11 08:12] VITALS: BP 114/60
[2018-04-11 11:33] LABS: STOOL OCCULT BLD 1ST SPECIMEN POSITIVE
[2018-04-11 15:42] VITALS: BP 120/74
[2018-04-11 23:07] VITALS: BP 101/60
[2018-04-12 07:03] LABS: HEMATOCRIT 30.4 % (36.0-46.0); HEMOGLOBIN 8.8 G/DL (11.9-15.5); MCH 19.7 PG (29.0-34.0); MCHC 28.9 G/DL (30.0-36.0); PLATELET COUNT 320 K/uL (156-360); RBC DIS.WIDTH-CV 24.3 % (11.8-14.6); RED BLOOD COUNT 4.47 M/uL (3.80-5.20); WHITE BLOOD COUNT 4.1 K/uL (4.1-10.2)
[2018-04-12 07:53] VITALS: BP 116/64
[2018-04-12] MEDS ORDERED: PAXIL30 MG PO (08:53)
[2018-04-12] MEDS ORDERED: FERROUS SULFAT325 MG PO (11:27)
[2018-04-12 12:18] VITALS: BP 122/71
[2018-04-12 13:05] VITALS: BP 127/68
== END 2018-04-12 16:08 | DRG 536 ==
LOC: EME 19:06 → EDOF 04-08 00:32 → 3EAST 04-08 00:32 → ENRESERV 04-08 00:37 → 3EAST 04-08 03:53
PROVIDERS: Hospitalist; Nurse Practitioner Family; Physician Assistant
PROC: 30233N1 Transfusion of Nonautologous Red Blood Cells into Peripheral Vein, Percutaneous Approach (ICD-10-PCS; principal; 2018-04-08)
DX: S32.592A Other specified fracture of left pubis, initial encounter for closed fracture (principal); G89.11 Acute pain due to trauma; G35 Multiple sclerosis; R29.6 Repeated falls; D50.9 Iron deficiency anemia, unspecified; D63.8 Anemia in other chronic diseases classified elsewhere; K30 Functional dyspepsia; R27.0 Ataxia, unspecified; F17.200 Nicotine dependence, unspecified, uncomplicated; Z98.84 Bariatric surgery status; Z90.49 Acquired absence of other specified parts of digestive tract; I89.0 Lymphedema, not elsewhere classified; Z87.11 Personal history of peptic ulcer disease; Z80.1 Family history of malignant neoplasm of trachea, bronchus and lung; Z80.0 Family history of malignant neoplasm of digestive organs; Z88.6 Allergy status to analgesic agent; Z86.718 Personal history of other venous thrombosis and embolism; W18.30XA Fall on same level, unspecified, initial encounter
CPT/HCPCS: 70553; 71045; 72100; 72192; 73502; 80048; 81003; 82272; 82607; 82728; 82746; 83540; 84466; 85027; 86850; 86900; 86901; 86920; 99281; 99285; J1170; J1644; J2930; J7040; J7050; P9016

== ENCOUNTER 2018-06-20 13:09 | Emergency (ER) | payer OTHER ==
[~2018-06-20] VITALS: Ht 167.6 cm; Wt 80.0 kg
[~2018-06-20 13:09] MED LIST changes: +FERROUS SULFAT325 MG PO; +PAXIL30 MG PO; +PEN-VEE K,VEET500 MG PO
[2018-06-20 14:23] LABS: HEMATOCRIT 30.1 % (36.0-46.0); HEMOGLOBIN 9.5 G/DL (11.9-15.5); MCH 23.2 PG (29.0-34.0); MCHC 31.6 G/DL (30.0-36.0); MCV 73.6 FL (83-99); PLATELET COUNT 199 K/uL (156-360); RBC DIS.WIDTH-CV 24.9 % (11.8-14.6); RBC DIS.WIDTH-SD 65.4 % (39-53); RED BLOOD COUNT 4.09 M/uL (3.80-5.20); WHITE BLOOD COUNT 5.4 K/uL (4.1-10.2)
[2018-06-20 14:30] LABS: CHLORIDE 104 mEq/L (99-109); POTASSIUM 3.7 mEq/L (3.7-5.4); SODIUM 137 mEq/L (136-147)
[2018-06-20 14:31] LABS: GLUCOSE 102 mg/dL (70-99)
[2018-06-20 14:35] LABS: CREATININE 0.5 mg/dL (0.6-1.3); GFR ESTIMATE (CALCULATED) > 59 mL/min/
[2018-06-20 14:36] LABS: UREA NITROGEN (BUN) 9 mg/dL (9-23)
[2018-06-20] MEDS ORDERED: AUGMENTIN875 MG PO (15:46)
[2018-06-20 16:24] VITALS: BP 112/68
== END 2018-06-20 16:24 | disposition home or self-care (01) ==
LOC: EME 13:09
PROVIDERS: Nurse Practitioner Family
DX: S39.011A Strain of muscle, fascia and tendon of abdomen, initial encounter (principal); L03.116 Cellulitis of left lower limb; L03.115 Cellulitis of right lower limb; J32.9 Chronic sinusitis, unspecified; X58.XXXA Exposure to other specified factors, initial encounter; G35 Multiple sclerosis; M81.0 Age-related osteoporosis without current pathological fracture; F32.9 Major depressive disorder, single episode, unspecified; M79.7 Fibromyalgia; K21.9 Gastro-esophageal reflux disease without esophagitis; F17.200 Nicotine dependence, unspecified, uncomplicated; F41.9 Anxiety disorder, unspecified; Z88.6 Allergy status to analgesic agent
CPT/HCPCS: 73502; 80048; 85027; 99281; 99284